=== PATIENT | female | born 1940 | race Caucasian/White ===

== ENCOUNTER 2025-01-24 16:35 | Inpatient (IN) | payer OTHER ==
[2025-01-24] MEDS ORDERED: oxyCODONE 5 MG TAB PO PRN (19:16)
[2025-01-24] MEDS: Gabapentin 300 MG CAP PO SCH (21:14)
[2025-01-24] MEDS: clonazePAM 0.5 MG TAB PO SCH (21:16)
[2025-01-24] MEDS: Methocarbamol 500 MG TAB PO SCH (21:16)
[2025-01-25] MEDS: FLU (Fluad Triv) 25-26 (65UP)PF 45 MCG/0.5 ML Syringe IM ONE (06:27)
[2025-01-25 08:25] LABS: Anion Gap 18 mmol/L (10-20); BUN (Urea Nitrogen) 22 mg/dL (9.8-20.1); Calc. Creatinine Clearance 51 mL/min (70-130); Calcium 8.5 mg/dL (7.8-10.44); Carbon Dioxide 30 mmol/L (23-31); Chloride 102 mmol/L (98-107); Glucose 90 mg/dL (83-110); Potassium 3.8 mmol/L (3.5-5.1); Sodium 146 mmol/L (136-145)
[2025-01-25] MEDS: Mometasone 200 MCG/Formoterol 5 MCG 60 PUFF INHALER INH SCH ×2 (08:43→20:44)
[2025-01-25] MEDS: Acetaminophen 325 MG TAB PO PRN (08:44)
[2025-01-25] MEDS: Ezetimibe 10 MG TAB PO SCH (08:44)
[2025-01-25] MEDS: Furosemide 40 MG TAB PO SCH (08:44)
[2025-01-25 08:53] LABS: #Basophils 0.1 thou/uL (0.0-0.2); #Eosinophils 0.2 thou/uL (0.0-0.7); #Lymphocytes 1.4 thou/uL (1.20-3.40); #Monocytes 0.6 thou/uL (0.11-0.59); #Neutrophils 3.8 thou/uL (1.40-6.50); %Basophils 1.1 % (0.0-1.0); %Eosinophils 3.5 % (0.0-10.0); %Lymphocytes 23.2 % (21.0-51.0); %Monocytes 10.3 % (0.0-10.0); %Neutrophils 61.8 % (42.0-75.0); Hematocrit 33.6 % (36.0-47.0); Hemoglobin 10.0 g/dL (12.0-16.0); Mean Corpuscular Hemoglobin 28.2 pg (27.0-31.0); Mean Corpuscular Volume 94.6 fl (78.0-98.0); Platelet Count 245 10x3/uL (130-400); Red Blood Cell (RBC) Count 3.55 mill/uL (4.20-5.40); White Blood Cell (WBC) Count 6.1 10x3/uL (4.8-10.8)
[2025-01-25] MEDS ORDERED: cefTRIAXone (ROCEPHIN) 2 GM VIAL IVPB SCH (11:00)
[2025-01-25] MEDS: cefTRIAXone (ROCEPHIN) 2 GM VIAL ONE (11:24)
[2025-01-25] MEDS: cefTRIAXone\\ROCEPHIN 2 GM in Sodium Chloride 0.9% 100 ML IVPB SCH (11:25)
[2025-01-25] MEDS ORDERED: Emollient 15 oz bottle 450 ML, Triamcinolone Acetonide 200 MG TOP PRN (18:37)
[2025-01-25] MEDS: Emollient 15 oz bottle 450 ML, Triamcinolone Acetonide 200 MG TOP SCH (20:44)
[2025-01-27] MEDS: Pantoprazole 40 MG DR.TAB PO PRN (21:27)
[2025-01-31] MEDS ORDERED: Furosemide 40 MG TAB PO PRN (14:10)
[2025-02-01 05:19] LABS: Hematocrit 27.7 % (36.0-47.0); Hemoglobin 8.4 g/dL (12.0-16.0); Platelet Count 192 10x3/uL (130-400)
[2025-02-01 16:53] VITALS: BMI 36.5
[2025-02-06 05:28] LABS: Hematocrit 28.3 % (36.0-47.0); Hemoglobin 8.6 g/dL (12.0-16.0); Platelet Count 167 10x3/uL (130-400)
[2025-02-06 05:38] LABS: Anion Gap 17 mmol/L (10-20); BUN (Urea Nitrogen) 42 mg/dL (9.8-20.1); Calc. Creatinine Clearance 43 mL/min (70-130); Calcium 9.0 mg/dL (7.8-10.44); Carbon Dioxide 30 mmol/L (23-31); Chloride 98 mmol/L (98-107); Glucose 84 mg/dL (83-110); Potassium 4.1 mmol/L (3.5-5.1); Sodium 141 mmol/L (136-145)
[2025-02-06] MEDS: TADALAFIL 20 MG TABLET PO SCH (20:19)
[2025-02-08 05:59] VITALS: BMI 34.8
[2025-02-09 07:38] VITALS: BP 145/56; TEMP 97.8
== END 2025-02-09 13:30 | DRG 945 ==
LOC: MADMS 16:35
PROVIDERS: ADMIT Family Medicine; ATTEND Family Medicine
PROC: F07Z9ZZ Gait Training/Functional Ambulation Treatment (ICD-10-PCS; principal; 2025-01-24)
PROC: 3E03329 Introduction of Other Anti-infective into Peripheral Vein, Percutaneous Approach (ICD-10-PCS; 2025-01-25)
DX: R53.1 Weakness (principal); A41.51 Sepsis due to Escherichia coli [E. coli]; J96.21 Acute and chronic respiratory failure with hypoxia; I13.0 Hypertensive heart and chronic kidney disease with heart failure and stage 1 through stage 4 chronic kidney disease, or unspecified chronic kidney disease; I50.32 Chronic diastolic (congestive) heart failure; I49.5 Sick sinus syndrome; I25.10 Atherosclerotic heart disease of native coronary artery without angina pectoris; Z96.0 Presence of urogenital implants; I48.91 Unspecified atrial fibrillation; I27.20 Pulmonary hypertension, unspecified; N18.32 Chronic kidney disease, stage 3b; Z88.8 Allergy status to other drugs, medicaments and biological substances; Z88.1 Allergy status to other antibiotic agents; Z99.81 Dependence on supplemental oxygen; Z79.899 Other long term (current) drug therapy; Z79.4 Long term (current) use of insulin; Z90.710 Acquired absence of both cervix and uterus; Z90.49 Acquired absence of other specified parts of digestive tract; Z98.51 Tubal ligation status; Z98.890 Other specified postprocedural states; Z95.5 Presence of coronary angioplasty implant and graft
CPT/HCPCS: 36415; 80048; 85014; 85018; 85025; 85049; 94664; J0696; J3301